=== PATIENT | male | born 1955 | race Caucasian/White ===

== ENCOUNTER 2016-09-07 10:42 | Outpatient (CLI) | payer MEDICAID | END 2016-09-07 10:43 | disposition home or self-care (01) | DX: E80.6 Other disorders of bilirubin metabolism (principal); E78.5 Hyperlipidemia, unspecified; R73.01 Impaired fasting glucose; I10 Essential (primary) hypertension; D64.9 Anemia, unspecified ==

== ENCOUNTER 2017-10-25 11:47 | Emergency (ER) | payer MEDICAID ==
[2017-10-25 12:20] LABS: BASOPHILS # (AUTO) 0.1 10^3/uL (0.0-0.1); BASOPHILS % (AUTO) 0.6 %; EOSINOPHILS # (AUTO) 0.1 10^3/uL (0.0-0.7); EOSINOPHILS % (AUTO) 0.9 %; HGB - HEMOGLOBIN 15.7 g/dL (14.0-18.0); LYMPHOCYTES # (AUTO) 0.6 10^3/uL (1.5-3.5); MEAN CORPUSCULAR HEMOGLOBIN 29.1 pg (27.0-31.0); MEAN CORPUSCULAR HGB CONC 35.6 g/dL (32.0-36.0); MEAN CORPUSCULAR VOLUME 81.9 fL (80.0-94.0); MEAN PLATELET VOLUME 7.6 fL (7.4-11.4); MONOCYTES # (AUTO) 0.8 10^3/uL (0.0-1.0); MONOCYTES % (AUTO) 6.4 %; NEUTROPHILS # (AUTO) 10.5 10^3/uL (1.5-6.6); NEUTROPHILS % (AUTO) 87.1 %; PLT - PLATELET COUNT 265 10^3/uL (130-450); RED BLOOD COUNT 5.41 10^6/uL (4.70-6.10)
[2017-10-25 12:41] LABS: ALBUMIN 4.4 g/dL (3.2-5.5); ALBUMIN/GLOBULIN RATIO 1.5 (1.0-2.2); BILIRUBIN,TOTAL 2.9 mg/dL (0.2-1.0); CALCIUM 9.3 mg/dL (8.5-10.3); CREATININE 1.2 mg/dL (0.6-1.2); TOTAL PROTEIN 7.4 g/dL (6.7-8.2)
[2017-10-25 13:10] LABS: BILIRUBIN,URINE NEGATIVE (NEGATIVE); GLUCOSE, URINE (UA) NEGATIVE (NEGATIVE); KETONES,URINE (UA) NEGATIVE (NEGATIVE); LEUKOCYTE ESTERASE, URINE NEGATIVE (NEGATIVE); NITRITE,URINE NEGATIVE (NEGATIVE); OCCULT BLOOD,URINE SMALL (NEGATIVE); PH,URINE 5.5 PH (5.0-7.5); PROTEIN,URINE TRACE mg/dL (NEGATIVE); UROBILINOGEN,URINE 0.2 (NORMAL) E.U./dL (NORMAL)
[2017-10-25 13:12] LABS: CLARITY,URINE CLEAR (CLEAR)
[2017-10-25 13:27] LABS: BACTERIA,URINE Rare /HPF (None Seen); RBC,URINE 0-5 /HPF (0-5); SQUAMOUS EPITHELIAL CELL,UR NONE SEEN (<= Few)
[2017-10-25 13:28] LABS: MUCUS,URINE Few Strands
--- NOTE | 2017-10-25 14:54 | ED Physician Documentation ---
PD HPI NVD - Stated complaint Stated Complaint: VOMITING - Chief complaint Chief Complaint: Abd Pain - History obtained from History obtained from: Patient - History of Present Illness Timing - onset: Yesterday Timing - duration: Days (1-2) Associated symptoms: Loss of appetite. No: Fever, Abdominal pain, Hematemesis, Melena, Dysuria (but says urine smells strongly) Contributing factors: No: Sick contact, Bad food, Travel, Recent antibiotics Similar symptoms before: Has not had sx before Recently seen: Not recently seen Review of Systems Constitutional: reports: Chills, Myalgias. denies: Fever Nose: denies: Rhinorrhea / runny nose, Congestion Throat: denies: Sore throat Cardiac: denies: Chest pain / pressure, Palpitations Respiratory: denies: Dyspnea, Cough GI: reports: Nausea, Vomiting, Diarrhea. denies: Abdominal Pain, Hematemesis, Bloody / black stool : denies: Dysuria, Frequency Skin: denies: Rash, Lesions Neurologic: reports: Generalized weakness, Near syncope. denies: Focal weakness , Numbness, Syncope, Altered mental status, Headache, LOC Endocrine: reports: Weight loss. denies: Polydypsia, Polyuria PD PAST MEDICAL HISTORY - Past Medical History Cardiovascular: Hypertension Respiratory: Sleep apnea GI: GERD, Hiatal hernia, Hemorrhoids Psych: Depression, Claustrophobia - Past Surgical History Past Surgical History: Yes General: Colonoscopy Ortho: Knee replacement - Present Medications Home Medications: Ambulatory Orders Medication Instructions Recorded Confirmed Cholecalciferol (Vitamin D3) 2,000 unit PO DAILY 07/14/13 10/27/17 [Vitamin D3] Magnesium Oxide/Mag Aa Chelate 300 mg PO DAILY 07/14/13 10/27/17 [Magnesium 300 mg Capsule] Tamsulosin [Flomax] 0.4 mg PO ONCE 07/14/13 10/27/17 Lansoprazole 15 mg PO DAILY 08/22/14 10/27/17 Chlorthalidone 1 tab PO DAILY 07/28/17 10/27/17 Lidocaine Viscous 2% [Xylocaine 5 ml PO Q4H PRN #1 bottle 10/25/17 10/27/17 Viscous 2%] Ondansetron Odt [Zofran] 4 mg TL Q6H PRN #15 tablet 10/25/17 10/27/17 Cyanocobalamin (Vitamin B-12) 1 tab PO DAILY 10/27/17 10/27/17 [Vitamin B-12 (1000 mcg sublingual)] - Allergies Allergies/Adverse Reactions: Allergies Allergy/AdvReac Type Severity Reaction Status Date / Time No Known Drug Allergies Allergy Verified 10/25/17 11:59 - Social History Does the pt smoke?: No Smoking Status: Never smoker Does the pt drink ETOH?: No Does the pt have substance abuse?: No PD ED PE NORMAL - Vitals Vital signs reviewed: Yes - General General: Alert and oriented X 3, Well developed/nourished - HEENT HEENT: Ears normal, Pharynx benign. No: Moist mucous membranes - Neck Neck: Supple, no meningeal sign, No adenopathy - Cardiac Cardiac: RRR, No murmur - Respiratory Respiratory: Clear bilaterally - Abdomen Abdomen: Soft, Non tender, Non distended, No organomegaly. No: Normal bowel sounds (diminished) - Male Male : Deferred - Rectal Rectal: Deferred - Back Back: No CVA TTP - Derm Derm: Normal color, Warm and dry - Extremities Extremities: No deformity, No edema, No calf tenderness / cord - Neuro Neuro: Alert and oriented X 3, No motor deficit, Normal speech Results - Vitals Vitals: Oxygen O2 Source Room air - Labs Labs: Laboratory Tests 10/25/17 10/25/17 10/25/17 12:14 12:14 Unknown WBC 12.0 H RBC 5.41 Hgb 15.7 Hct 44.3 MCV 81.9 MCH 29.1 MCHC 35.6 RDW 14.0 Plt Count 265 MPV 7.6 Neut # 10.5 H Lymph # 0.6 L Pike # 0.8 Eos # 0.1 Baso # 0.1 Absolute Nucleated RBC 0.02 Nucleated RBC % 0.2 Sodium 138 Potassium 3.1 L Chloride 98 L Carbon Dioxide 27 Anion Gap 13.0 BUN 25 H Creatinine 1.2 Estimated GFR (MDRD) 61 L Glucose 118 H Calcium 9.3 Total Bilirubin 2.9 H AST 21 ALT 15 Alkaline Phosphatase 63 Total Protein 7.4 Albumin 4.4 Globulin 3.0 Albumin/Globulin Ratio 1.5 Lipase 78 H Urine Color DARK YELLOW Urine Clarity CLEAR Urine pH 5.5 Ur Specific [place] 1.025 Urine Protein TRACE Urine Glucose (UA) NEGATIVE Urine Ketones NEGATIVE Urine Occult Blood SMALL H Urine Nitrite NEGATIVE Urine Bilirubin NEGATIVE Urine Urobilinogen 0.2 (NORMAL) Ur Leukocyte Esterase NEGATIVE Urine RBC 0-5 Urine WBC 0-3 Ur Squamous Epith Cells NONE SEEN Urine Bacteria Rare Urine Mucus Few Strands Ur Microscopic Review INDICATED Urine Culture Comments NOT INDICATED PD MEDICAL DECISION MAKING - ED course Complexity details: re-evaluated patient (feeling much improved with IV fluids and meds. ), considered differential (sounds like viral GE. ), d/w patient Departure - Departure Disposition: 01 Home, Self Care Clinical Impression: Nausea vomiting and diarrhea, Viral gastroenteritis Condition: Stable Record reviewed to determine appropriate education?: Yes Instructions: ED Diet Vomiting Diarrhea Follow-Up: Oly Salazar DO [Primary Care Provider] - Prescriptions: Lidocaine Viscous 2% [Xylocaine Viscous 2%] 5 ml PO Q4H PRN #1 bottle PRN Reason: Pain Ondansetron Odt [Zofran] 4 mg TL Q6H PRN #15 tablet PRN Reason: Nausea / Vomiting Comments: Small frequent fluids. Ondansetron if needed for nausea. If you do have upset stomach or heartburn/gastritis symptoms he can use antacid in even lidocaine 5- 10 mils mixed with it just for the discomfort. Vomiting like this can cause some irritation of the stomach. It presumably is a viral illness that will have a 1 or 2 day duration and then started feeling a bit yucky for a couple more days. Rest and activity as able. Use Imodium at home if needed for diarrhea. Recheck if not improved over the next couple of days. Discharge Date/Time: 10/25/17 17:22
[2017-10-25] MEDS ORDERED: ONDANSETRON 4 MG/2 ML VIAL IVP STA (15:13)
[2017-10-25] MEDS ORDERED: SODIUM CHLORIDE 0.9% 1,000 ML IV ONE ×2 (15:13)
[2017-10-25] MEDS ORDERED: FAMOTIDINE 20 MG/50 ML 50 ML IV ONE (15:14)
[2017-10-25] MEDS ORDERED: POTASSIUM BICARB 25 MEQ TABLET PO STA (16:28)
[2017-10-25 17:21] VITALS: BP 142/59
== END 2017-10-25 17:22 | disposition home or self-care (01) ==
LOC: ED 11:47
DX: A08.4 Viral intestinal infection, unspecified (principal); I10 Essential (primary) hypertension; Z96.659 Presence of unspecified artificial knee joint
CPT/HCPCS: 36415; 80053; 81001; 83690; 85025; 96365; 96375; 99283; 99284; A9270; 81003; 87086

== ENCOUNTER 2018-06-21 10:07 | Outpatient (CLI) | payer MEDICAID | END 2018-06-21 23:59 | LOC: LAB.WCP 10:07 | PROVIDERS: ATTEND Family Medicine | DX: R51 Headache (principal) | CPT/HCPCS: 36415; 85651; 86140 ==

== ENCOUNTER 2018-08-29 12:53 | Outpatient (CLI) | payer MEDICAID | END 2018-08-29 12:54 | disposition home or self-care (01) | LOC: SC 12:53 | PROVIDERS: ATTEND Internal Medicine Pulmonary Disease | DX: G47.33 Obstructive sleep apnea (adult) (pediatric) (principal); G47.00 Insomnia, unspecified | CPT/HCPCS: 99203; 99212 ==

== ENCOUNTER 2018-09-06 07:06 | Day surgery (SDC) | payer MEDICAID ==
[2018-09-06] MEDS ORDERED: ceFAZolin 2 GM/50 ML 2 GM/50 ML BAG IV ONE (07:09)
[2018-09-06] MEDS ORDERED: LACTATED RINGERS 1,000 ML IV ONE ×2 (07:40→10:25)
--- NOTE | 2018-09-06 08:02 | ANESTHESIA ---
Pre-Anesthesia VS, & Labs - Diagnosis R recurrent inguinal hernia - Procedure R inguinal hernia repair Vital Signs: Temp Pulse Resp BP Pulse Ox 36.9 C 57 L 16 142/50 H 98 09/06/18 07:19 09/06/18 07:19 09/06/18 07:19 09/06/18 07:19 09/06/18 07:19 Height 5 ft 6 in Weight (kg) 75.1 kg Body Mass Index 25.8 - NPO >8 hours Home Medications and Allergies Home Medications: Ambulatory Orders Cyanocobalamin (Vitamin B-12) [B-12] 1,500 mcg SL DAILY 09/01/18 Cholecalciferol (Vitamin D3) [Vitamin D3] 2,000 unit PO DAILY 07/14/13 Magnesium Oxide/Mag Aa Chelate [Magnesium 300 mg Capsule] 300 mg PO DAILY 07/14/13 Tamsulosin [Flomax] 0.4 mg PO ONCE 07/14/13 Lansoprazole 15 mg PO DAILY 08/22/14 Chlorthalidone 1 tab PO DAILY 07/28/17 Cyanocobalamin (Vitamin B-12) [B-12] 1,500 mcg SL DAILY 09/01/18 Allergies/Adverse Reactions: Allergies Allergy/AdvReac Type Severity Reaction Status Date / Time No Known Drug Allergies Allergy Verified 10/25/17 11:59 Anes History & Medical History - Anesthetic History Anesthesia Complications: reports: No previous complications Family history of Anesthesia Complications: Denies - Medical History Cardiovascular: reports: Hypertension, Murmur (per pt.) Pulmonary: reports: Sleep apnea Gastrointestinal: reports: GERD, Hiatal hernia, Hemorrhoids Urinary: reports: Retention, Frequency Musculoskeletal: reports: Chronic back pain Endocrine/Autoimmune: reports: None Skin: reports: Other Smoking Status: Never smoker - Surgical History General: Colonoscopy Eyes Ears Nose Throat (EENT): Other Orthopedic: Knee replacement Exam General: Alert, Oriented x3, Cooperative Dental: WNL Mouth Openin Fingerbreadth Mallampati classification: II Thyromental Distance: 4-6 cm Respiratory: Lungs clear, Normal breath sounds Cardiovascular: Regular rate Neurological: Normal speech Mental/Cognitive Status: Alert/Oriented X3 Cognitive Status: Within normal limits Plan Anesthesia Type: General Consent for Procedure(s) Verified and Reviewed: Yes Code Status: Attempt Resuscitation ASA classification: 2-Mild systemic disease Is this case an emergency?: No
[2018-09-06] MEDS ORDERED: BUPIVACAINE 0.5% PF 30 ML VIAL ONE (08:40)
[2018-09-06] MEDS ORDERED: BUPIVACAINE 0.5% PF 30 ML VIAL INFIL ONE ×2 (09:39→10:03)
[2018-09-06] MEDS ORDERED: ONDANSETRON 4 MG/2 ML VIAL IVP PRN (10:26)
[2018-09-06] MEDS ORDERED: HYDROmorphone 0.5 MG/0.5 ML SYRINGE IVP PRN (10:26)
[2018-09-06] MEDS ORDERED: HYDROcod/ACETAM 5/325 MG TABLET PO PRN (10:26)
--- NOTE | 2018-09-06 10:33 | OPERATIVE REPORT ---
Operative Report - General Procedure Date: 09/06/18 Planned Procedure: Recurrent right inguinal herniorrhaphy Pre-Op Diagnosis: Recurrent right inguinal hernia Procedure Performed: Recurrent right direct inguinal herniorrhaphy with mesh Post Op Diagnosis: Recurrent right direct inguinal hernia - Procedure Note Primary Surgeon: Kemar Samuels MD Anesthesia Provider: John Cameron CRNA Anesthesia Technique: General ET tube, Local (30 mL of half percent Marcaine) IV Fluids (mL): 700 Estimated Blood Loss (mL): 5 Drain/Tube Type: Other (None.) Complications: None. - Other Other Information/Narrative: OPERATIVE DESCRIPTION/REPORT: After verbal and written informed consent was obtained detailing the risks of infection, bleeding requiring transfusion with its risks, nerve injury, and d eath, and after I met with the patient confirming the surgery and the site of the surgery and after initialing the site of the surgery with a surgical marker, the patient was brought to the operative suite and placed supine on the operating table. Great care was taken to avoid pressure points to prevent pressure necrosis or nerve injury. Monitoring devices were applied along with TEDs and pneumatic compressive stockings (to prevent DVT). The patient received preoperative antibiotics for surgical prophylaxis. John Cameron CRNA sedated and anesthetized the patient for the entire procedure. The patient was prepped and draped in the usual sterile manner. With the patient draped my initials were clearly visible. A "time in" then confirmed that the patient was identified with 3 identifiers (name, date and medical record number), the history and physical was in the chart, the signed consent confirming the procedure was in the chart, the patient was in the correct position, the aforementioned prophylactic measures were in place or given, we had the correct personnel and equipment to complete the procedure and that anesthesia, surgery and nursing were given an opportunity to express any concerns. With the agreement of everyone in the room, we proceeded with the operation. A standard inguinal incision was made tracing the medial third of the previous incision (the bulge was palpated just lateral to the pubic tubercle) and dissection was carried down to the external oblique aponeurosis using a combination of Metzenbaum scissors and Bovie electrocautery. The external oblique aponeurosis was cleared of overlying adherent tissue, and the external ring was delineated. The external oblique was the incised with a scalpel and this incision was carried out to the external ring using Metzenbaum scissors. Old Ethibond sutures were seen. Having exposed the inguinal canal, the cord structures were from the canal using blunt dissection, and a Herculaneum drain was placed around the cord structures at the level of the pubic tubercle. This Sharif drain was then used to retract the cord structures as needed. Adherent cremasteric muscle was dissected free from the cord using Bovie electrocautery. The cord was then explored using a combination of sharp and blunt dissection, and no sac was found. The hernia was found coming from the floor of the inguinal canal medial to the inferior epigastric vessels. This was dissected back to the hernia opening. The hernia was inverted back into the abdominal cavity and a large Bard Perfix plug (Ref# [id number], Lot# [id number], use by 2023-03-12) inserted into the hernia defect. The plug was secured to the edge of the hernia defect using interrupted 2-0 PDS sutures. This permitted the floor of the inguinal canal to be repaired without the hernia in my way. The Perfix enlay patch was then placed on the floor of the inguinal canal and secured superiorly to the conjoined tendon and inferiorly to the shelving edge of Pouparts ligament using interrupted 2-0 PDS sutures. At the pubic tubercle a 2-0 PDS stitch was used to secure the mesh. The mesh was secured around the cord structures with a 2-0 PDS loosely thus creating a new internal ring. The Herculaneum drain was removed. The wound was then irrigated using sterile saline, and hemostasis was obtained using Bovie electrocautery. The incision in the external oblique was approximated using a 2-0 Vicryl in a running fashion, thus reforming the external ring. The skin incision was approximated with 4-0 Monocryl in a subcuticular fashion. The incision was then further buttressed with Dermabond. At this point a time out was performed that confirmed that all the counts were correct, the procedure that was performed, the blood loss, the IV fluids administered, and the patients condition. A dressing was then applied. Gentle downward traction ensured that the testes were well seated in the scrotum. Having tolerated the procedure well, the patient was taken to recovery room in good and stable condition. [employer] disclaimer: This document was created in part using voice recognition technology. Because of the inherent limitations of the system ([employer]'s Dragon Dictate user manual states that the licensee understands that speech recognition is a statistical process and that recognition errors are inherent in the process), occasional same sounding word substitutions and grammatical errors do occur and persist despite proofreading. Please read this document for context.
[2018-09-06 11:56] VITALS: BP 152/52
== END 2018-09-06 07:07 | disposition home or self-care (01) ==
LOC: SDS 07:06
PROVIDERS: ATTEND Surgery
PROC: 0YU50JZ Supplement Right Inguinal Region with Synthetic Substitute, Open Approach (ICD-10-PCS; principal; 2018-09-06 08:30)
DX: K40.91 Unilateral inguinal hernia, without obstruction or gangrene, recurrent (principal); I10 Essential (primary) hypertension; E78.00 Pure hypercholesterolemia, unspecified; G47.30 Sleep apnea, unspecified; K21.9 Gastro-esophageal reflux disease without esophagitis; K44.9 Diaphragmatic hernia without obstruction or gangrene; R33.9 Retention of urine, unspecified; R35.0 Frequency of micturition; Z87.11 Personal history of peptic ulcer disease
CPT/HCPCS: 49520; C1781; J0690; J7120

== ENCOUNTER 2018-09-11 19:30 | Outpatient (CLI) | payer MEDICAID | END 2018-09-11 23:59 | disposition home or self-care (01) | LOC: SC 19:30 | PROVIDERS: ATTEND Internal Medicine Pulmonary Disease | DX: G47.33 Obstructive sleep apnea (adult) (pediatric) (principal) | CPT/HCPCS: 95806 ==

== ENCOUNTER 2018-09-19 08:46 | Day surgery (SDC) | payer MEDICAID ==
[2018-09-19] MEDS ORDERED: LACTATED RINGERS 1,000 ML IV ONE (09:12)
[2018-09-19] MEDS ORDERED: LIDO GARGLE 30 ML BOTTLE ONE (10:00)
[2018-09-19] MEDS ORDERED: fentaNYL 100 MCG/2 ML VIAL IVP ONE (10:17)
[2018-09-19] MEDS ORDERED: MIDAZOLAM 2 MG/2 ML VIAL IVP ONE (10:17)
[2018-09-19] MEDS ORDERED: LIDO GARGLE 30 ML BOTTLE PO ONE (10:35)
[2018-09-19 11:44] VITALS: BP 123/62
== END 2018-09-19 08:47 | disposition home or self-care (01) ==
LOC: SDS 08:46
PROVIDERS: ATTEND Surgery
PROC: 0DB48ZX Excision of Esophagogastric Junction, Via Natural or Artificial Opening Endoscopic, Diagnostic (ICD-10-PCS; principal; 2018-09-19 10:15)
DX: K21.0 Gastro-esophageal reflux disease with esophagitis (principal); R13.10 Dysphagia, unspecified; K59.00 Constipation, unspecified; K40.91 Unilateral inguinal hernia, without obstruction or gangrene, recurrent; I10 Essential (primary) hypertension; G47.30 Sleep apnea, unspecified; Z80.0 Family history of malignant neoplasm of digestive organs; Z87.11 Personal history of peptic ulcer disease
CPT/HCPCS: 43239; A9270; J7120

== ENCOUNTER 2018-10-06 08:32 | Outpatient (CLI) | payer MEDICAID | END 2018-10-06 08:33 | disposition home or self-care (01) | LOC: SC 08:32 | PROVIDERS: ATTEND Nurse Practitioner Family | DX: G47.33 Obstructive sleep apnea (adult) (pediatric) (principal) | CPT/HCPCS: 99212; 99214 ==

== ENCOUNTER 2019-02-13 12:47 | Outpatient (CLI) | payer MEDICAID | END 2019-02-13 12:48 | disposition home or self-care (01) | LOC: SC 12:47 | PROVIDERS: ATTEND Internal Medicine Pulmonary Disease | DX: G47.33 Obstructive sleep apnea (adult) (pediatric) (principal) | CPT/HCPCS: 99212; 99213 ==

== ENCOUNTER 2020-04-09 09:12 | Outpatient (CLI) | payer MEDICARE, OTHER ==
--- NOTE | 2020-04-09 09:49 | SLEEP CARE CONSULTATION ---
Information from patient questionnaire entered by Morena De La Paz. I have reviewed and concur with the information entered by Morena De La Paz. This document represents the service I personally performed and the decisions made by me, Pallavi Kee MD, [facility]. History of Present Illness Service Date and Time: 04/09/2020911 Previous diagnosis: Mild, Obstructive Sleep Apnea-Hypopnea Syndrome AHI: 6.2 (in 2019) Reason for follow up: annual (last seen 2019) Equipment type: CPAP Equipment obtained from: [facility] Mask style: Nasal Prior sleep studies: Yes Year and Where: 2019 - [facility] Type of Sleep Study: Home sleep study HPI additional information: HPI: Mr. Cotto returned today for follow up of nasal CPAP therapy. He was diagnosed to have mild obstructive sleep apnea-hypopnea syndrome. The patient went to [facility] for the equipment and was fitted with a ResMed AirTouch F-20 full face mask. He reports using the device nightly and all through the night. The compliance report shows usage in 180 nights out of the past 180 nights, av eraging 6.3 (was 5.7) hours a night. The > 4 hour compliance rate for the past 30 days is 98%. He complained of fatigue but no particular problem with the device such as soreness on the face, dry nose, epistaxis, nasal congestion or headache. He thinks that the pressure of 11.4 - 16 cmH2O is comfortable (it was ordered 12 16 cmH2O last year). On the CPAP therapy he notices improvement in his sleep quality. The [place] Sleepiness Scale score 12. His notices no snore at all. The average residual AHI is 0.9 (was 5); and air leak, 0 L/min. The 90th percentile pressure is 12.4 cmH2O. CPAP Compliance Data - Data Reviewed with Patient Average duration of nightly device use: 6.3 Compliance rate %: 98 (180 days) Current pressure setting (cmH2O): 11.4-16 Average residual AHI: 0.9 Subjective Initial [place] Sleepiness Scale score: 12 (in 2019) Allergies and Home Medications Drug allergies reviewed: Yes Home medication list reviewed: Yes Review of Systems Review of systems same as previous: Yes Physical Exam Vital signs obtained and entered by: To minimize the risk of COVID-19 exposure, detailed exam was not performed. Height: 5 ft 6 in Weight: 170 lb Body Mass Index: 27.4 BMI Classification: Overweight Impression and Plan IMPRESSION: 1. Obstructive Sleep Apnea-Hypopnea Syndrome, mild, with the patient doing well on nasal CPAP therapy. He has excellent compliance and significant clinical improvement. The current pressure appears comfortable but slightly ineffective. Overall, he is very satisfied with treatment and plans to continue with it long-term. PLAN: 1. Leave autoCPAP at 11.4 - 16 cmH2O. 2. Return in one year for follow up or earlier if there is any problem with the treatment. Visit Type: In Office Time Spent with Patient (minutes): 15 Provider Statement: I spent 100% of the Face to Face Visit with the patient with greater than 50% spent counseling the patient and coordination of care.
== END 2020-04-09 09:13 | disposition home or self-care (01) ==
LOC: SC 09:12
PROVIDERS: ATTEND Internal Medicine Pulmonary Disease
DX: G47.33 Obstructive sleep apnea (adult) (pediatric) (principal); E66.3 Overweight; Z68.27 Body mass index [BMI] 27.0-27.9, adult
CPT/HCPCS: 99213; G0463; 99212

== ENCOUNTER 2020-10-15 17:10 | Outpatient (CLI) | payer MEDICARE, OTHER | END 2020-10-15 17:11 | disposition home or self-care (01) | LOC: COV 17:10 | PROVIDERS: ATTEND Internal Medicine Cardiovascular Disease | DX: Z01.812 Encounter for preprocedural laboratory examination (principal); I35.1 Nonrheumatic aortic (valve) insufficiency; Z20.822 Contact with and (suspected) exposure to COVID-19 ==

== ENCOUNTER 2020-12-27 15:39 | Outpatient (CLI) | payer MEDICARE, OTHER | END 2020-12-27 15:40 | disposition home or self-care (01) | LOC: COV 15:39 | PROVIDERS: ATTEND Surgery | DX: Z01.812 Encounter for preprocedural laboratory examination (principal); R19.4 Change in bowel habit; G47.33 Obstructive sleep apnea (adult) (pediatric); K21.9 Gastro-esophageal reflux disease without esophagitis; Z20.822 Contact with and (suspected) exposure to COVID-19 ==

== ENCOUNTER 2020-12-31 06:22 | Day surgery (SDC) | payer MEDICARE, OTHER ==
[2020-12-31] MEDS ORDERED: LACTATED RINGERS 1,000 ML IV ONE ×2 (06:25→08:58)
[2020-12-31] MEDS ORDERED: PROPOFOL 1000 MG/100 ML 1,000 MG/100 ML BOTTLE IV ONE (06:51)
--- NOTE | 2020-12-31 07:23 | ANESTHESIA ---
Pre-Anesthesia VS, & Labs - Diagnosis gerd, change in bowel habits - Procedure colonoscopy, EGD Vital Signs: Temp Pulse Resp BP Pulse Ox 36.2 C L 61 14 130/54 L 97 12/31/20 06:26 12/31/20 06:26 12/31/20 06:26 12/31/20 06:26 12/31/20 06:26 Height: 5 ft 6 in Weight (kg): 73 kg Body Mass Index: 25.9 BMI Classification: Overweight - NPO >8 hours - Lab Results Lab results reviewed: Yes Home Medications and Allergies Cholecalciferol (Vitamin D3) [Vitamin D3] 2,000 unit PO DAILY 07/14/13 Tamsulosin [Flomax] 0.4 mg PO DAILY 07/14/13 Atorvastatin Calcium 20 mg PO QPM 05/14/20 Chlorthalidone 12.5 mg PO DAILY 07/10/20 Lisinopril [Zestril] 10 mg PO DAILY 07/10/20 Potassium Chloride [Klor-Con 8] 8 meq PO DAILY 07/10/20 Allergies/Adverse Reactions: Allergies Allergy/AdvReac Type Severity Reaction Status Date / Time No Known Drug Allergies Allergy Verified 10/25/17 11:59 Anes History & Medical History - Anesthetic History Anesthesia Complications: reports: No previous complications Family history of Anesthesia Complications: Denies Family history of Malignant Hyperthermia: Denies - Medical History Cardiovascular: reports: Hypertension, Murmur Pulmonary: reports: Sleep apnea Gastrointestinal: reports: GERD, Hiatal hernia, Hemorrhoids Smoking Status: Never smoker - Surgical History General: reports: Colonoscopy Orthopedic: reports: Knee replacement Exam General: Alert, Oriented x3, Cooperative Dental: WNL Mouth Openin Fingerbreadth Neck Mobility: Normal Mallampati classification: II Thyromental Distance: 4-6 cm Respiratory: Lungs clear, Normal breath sounds, No respiratory distress Cardiovascular: Regular rate, Other (systolic murmur) Neurological: Normal speech Mental/Cognitive Status: Alert/Oriented X3, Normal for patient Cognitive Status: Within normal limits Plan Anesthesia Type: Total IV Consent for Procedure(s) Verified and Reviewed: Yes Code Status: Attempt Resuscitation ASA classification: 3-Severe systemic disease Is this case an emergency?: No
[2020-12-31 09:24] VITALS: BP 119/49
--- NOTE | 2020-12-31 10:23 | ANESTHESIA POST OP EVALUATION ---
Anesthesia Post Eval - Post Anesthesia Eval Vitals: Last Vital Signs Temp 36.2 C L 12/31/20 09:23 Pulse 55 L 12/31/20 09:23 Resp 11 L 12/31/20 09:23 BP 119/49 L 12/31/20 09:23 Pulse Ox 99 12/31/20 09:23 CV Function Including HR & BP: Stable Pain Control: Satisfactory Nausea & Vomiting: Negative Mental Status: Baseline Respiratory Status: Airway Patent Hydration Status: Satisfactory Anesthesia Complications: None
== END 2020-12-31 06:23 | disposition home or self-care (01) ==
LOC: SDS 06:22
PROVIDERS: ATTEND Surgery
PROC: 0DB78ZX Excision of Stomach, Pylorus, Via Natural or Artificial Opening Endoscopic, Diagnostic (ICD-10-PCS; 2020-12-31)
PROC: 0DB38ZX Excision of Lower Esophagus, Via Natural or Artificial Opening Endoscopic, Diagnostic (ICD-10-PCS; 2020-12-31)
PROC: 0DB48ZX Excision of Esophagogastric Junction, Via Natural or Artificial Opening Endoscopic, Diagnostic (ICD-10-PCS; 2020-12-31)
PROC: 0DJD8ZZ Inspection of Lower Intestinal Tract, Via Natural or Artificial Opening Endoscopic (ICD-10-PCS; principal; 2020-12-31 07:30)
PROC: 0DB98ZX Excision of Duodenum, Via Natural or Artificial Opening Endoscopic, Diagnostic (ICD-10-PCS; 2020-12-31 07:30)
DX: K21.9 Gastro-esophageal reflux disease without esophagitis (principal); R19.4 Change in bowel habit; K62.5 Hemorrhage of anus and rectum; K20.90 Esophagitis, unspecified without bleeding; K64.8 Other hemorrhoids; K57.30 Diverticulosis of large intestine without perforation or abscess without bleeding; G47.33 Obstructive sleep apnea (adult) (pediatric); E66.3 Overweight; Z68.25 Body mass index [BMI] 25.0-25.9, adult; R01.1 Cardiac murmur, unspecified
CPT/HCPCS: 43239; 45378; J7120

== ENCOUNTER 2021-01-20 16:41 | Outpatient (CLI) | payer MEDICARE, OTHER | END 2021-01-20 16:42 | disposition home or self-care (01) | LOC: COV 16:41 | PROVIDERS: ATTEND Nurse Practitioner | DX: Z01.812 Encounter for preprocedural laboratory examination (principal); Z20.822 Contact with and (suspected) exposure to COVID-19 ==

== ENCOUNTER 2021-03-21 08:00 | Outpatient (CLI) | payer MEDICARE, OTHER | END 2021-03-21 23:59 | disposition home or self-care (01) | LOC: LAB.WCP 08:00 | PROVIDERS: ATTEND Family Medicine | DX: Z79.01 Long term (current) use of anticoagulants (principal); Z95.2 Presence of prosthetic heart valve ==

== ENCOUNTER 2021-04-02 08:00 | Outpatient (CLI) | payer MEDICARE, OTHER | END 2021-04-02 23:59 | disposition home or self-care (01) | LOC: LAB.WCP 08:00 | PROVIDERS: ATTEND Family Medicine | DX: Z79.01 Long term (current) use of anticoagulants (principal); Z95.2 Presence of prosthetic heart valve ==

== ENCOUNTER 2021-04-09 08:00 | Outpatient (CLI) | payer MEDICARE, OTHER | END 2021-04-09 23:59 | disposition home or self-care (01) | LOC: LAB.N 08:00 | PROVIDERS: ATTEND Family Medicine | DX: Z79.01 Long term (current) use of anticoagulants (principal); Z95.2 Presence of prosthetic heart valve ==

== ENCOUNTER 2021-04-18 08:00 | Outpatient (CLI) | payer MEDICARE, OTHER | END 2021-04-18 23:59 | disposition home or self-care (01) | LOC: LAB.WCP 08:00 | PROVIDERS: ATTEND Family Medicine | DX: Z79.01 Long term (current) use of anticoagulants (principal); Z95.2 Presence of prosthetic heart valve ==

== ENCOUNTER 2021-04-25 08:00 | Outpatient (CLI) | payer MEDICARE, OTHER | END 2021-04-25 23:59 | disposition home or self-care (01) | LOC: LAB.WCP 08:00 | PROVIDERS: ATTEND Family Medicine | DX: Z79.01 Long term (current) use of anticoagulants (principal); Z95.2 Presence of prosthetic heart valve ==

== ENCOUNTER 2021-04-28 09:37 | Outpatient (CLI) | payer MEDICARE, OTHER ==
--- NOTE | 2021-04-28 09:52 | SLEEP CARE CONSULTATION ---
Information from patient questionnaire entered by Morena De La Paz. I have reviewed and concur with the information entered by Morena De La Paz. This document represents the service I personally performed and the decisions made by me, Pallavi Kee MD, [facility]. History of Present Illness Service Date and Time: 04/28/2021 0940 Previous diagnosis: Mild, Obstructive Sleep Apnea-Hypopnea Syndrome AHI: 6.2 (in 2019) Reason for follow up: annual (last seen 03/2020) Equipment type: CPAP Equipment obtained from: [facility] Mask style: Nasal Prior sleep studies: Yes Year and Where: 2019 - [facility] HPI additional information: Mr. Cotto was seen via telemedicine today for annual follow up of nasal CPAP therapy. He was diagnosed to have mild obstructive sleep apnea-hypopnea syndrome. The patient went to [facility] for the equipment and was fitted with a ResMed F30 full face mask. He reports using the device nightly and all through the night. The compliance report shows usage in 178 nights out of the past 180 nights, averaging 5.9 (was 6.3) hours a night. The > 4 hour compliance rate for the past 180 days is 96%. He complained of insomnia but no particular problem with the device such as soreness on the face, dry nose, epistaxis, nasal congestion or headache. He thinks that the pressure of 11.4 - 16 cmH2O is comfortable (it was ordered 12 16 cmH2O). On the CPAP therapy he notices improvement in his sleep quality. The [place] Sleepiness Scale score not available. The average residual AHI is 0.8 (was 0.9); and air leak, 0.1 L/min. The 90th percentile pressure is 12.2 cmH2O. CPAP Compliance Data - Data Reviewed with Patient Average duration of nightly device use: 5 hr 54 min Compliance rate %: 96 (180 days) Current pressure setting (cmH2O): 11.4-16 Humidity settin Average residual AHI: 0.8 Subjective Initial [place] Sleepiness Scale score: 12 (in 2019) Allergies and Home Medications Drug allergies reviewed: Yes Home medication list reviewed: Yes Review of Systems Review of systems same as previous: Yes Physical Exam Height: 5 ft 6 in Weight: 170 lb Body Mass Index: 27.4 BMI Classification: Overweight Impression and Plan IMPRESSION: 1. Obstructive Sleep Apnea-Hypopnea Syndrome, mild, with the patient doing well on nasal CPAP therapy. He has excellent compliance and significant clinical improvement. The current pressure appears comfortable but slightly ineffective. Overall, he is very satisfied with treatment and plans to continue with it long-term. 2. Insomnia, due to excessive time spent in bed of about 12 hours a night plus he naps during the day. PLAN: 1. Leave autoCPAP at 11.4 - 16 cmH2O. 2. Maintain a regular wake up time and spend no more than 8 hours in bed at night. Avoid naps. 3. Return for follow up in a year or earlier if there is any problem. Follow up with Sleep Care in: 1 year Visit Type: Telehealth Video Video Type: VSee Patient Location: Home Location of Provider: Office Patient agrees and consents to this telehealth visit type: Yes Patient agrees to have their insurance billed: Yes Time Spent with Patient (minutes): 15 Provider Statement: I spent 100% of the Telehealth Video Call with the patient with greater than 50% spent counseling the patient and coordination of care.
== END 2021-04-28 09:38 | disposition home or self-care (01) ==
LOC: SC 09:37
PROVIDERS: ATTEND Internal Medicine Pulmonary Disease
DX: G47.33 Obstructive sleep apnea (adult) (pediatric) (principal); G47.00 Insomnia, unspecified
CPT/HCPCS: 99212

== ENCOUNTER 2021-05-09 08:00 | Outpatient (CLI) | payer MEDICARE, OTHER | END 2021-05-09 23:59 | disposition home or self-care (01) | LOC: LAB.WCP 08:00 | PROVIDERS: ATTEND Family Medicine | DX: Z79.01 Long term (current) use of anticoagulants (principal); Z95.2 Presence of prosthetic heart valve ==

== ENCOUNTER 2021-05-23 08:00 | Outpatient (CLI) | payer MEDICARE, OTHER | END 2021-05-23 23:59 | disposition home or self-care (01) | LOC: LAB.N 08:00 | PROVIDERS: ATTEND Family Medicine | DX: Z79.01 Long term (current) use of anticoagulants (principal); Z95.2 Presence of prosthetic heart valve ==

== ENCOUNTER 2021-06-13 08:00 | Outpatient (CLI) | payer MEDICARE, OTHER | END 2021-06-13 23:59 | disposition home or self-care (01) | LOC: LAB.N 08:00 | PROVIDERS: ATTEND Family Medicine | DX: Z79.01 Long term (current) use of anticoagulants (principal); Z95.2 Presence of prosthetic heart valve ==

== ENCOUNTER 2021-07-02 08:00 | Outpatient (CLI) | payer MEDICARE, OTHER | END 2021-07-02 23:59 | disposition home or self-care (01) | LOC: LAB.N 08:00 | PROVIDERS: ATTEND Family Medicine | DX: Z79.01 Long term (current) use of anticoagulants (principal); Z95.2 Presence of prosthetic heart valve ==

== ENCOUNTER 2022-06-03 08:35 | Outpatient (CLI) | payer MEDICARE, OTHER ==
[2022-06-03 09:03] VITALS: BP 126/78
--- NOTE | 2022-06-03 09:03 | SLEEP CARE CONSULTATION ---
Information from patient questionnaire entered by Alexander March. I have reviewed and concur with the information entered by Alexander March. This document represents the service I personally performed and the decisions made by me, Ila Schneider ARNP. History of Present Illness Service Date and Time: 06/03/2022 0835 Previous diagnosis: Mild, Obstructive Sleep Apnea-Hypopnea Syndrome AHI: 6.2 (in 2018) Reason for follow up: annual (LAST SEEN 04/2021 RESMED) Equipment type: CPAP (RESMED) Equipment obtained from: [email or web address] (getting supplies as needed) Mask style: Full face Mask brand: Resmed ([id number]) Backup mask available: Yes (other mask) Last cushion change: 2 months ago Prior sleep studies: Yes Year and Where: 2018 - [facility] HPI additional information: MARCY VELAZCO was diagnosed to have mild, AHI 6.2, obstructive sleep apnea- hypopnea syndrome and returned today for CPAP therapy annual follow-up. Sleep Study - Results Prior sleep studies: Yes Year and Where: 2019 - [facility] CP[facility] Compliance Data - Data Reviewed with Patient Average duration of nightly device use: 6 hrs 32 min Compliance rate %: 98 (12/03/2021-05/31/2022; 178/180 days used) Current pressure setting (cmH2O): 11.4-16 Average residual AHI: 1.0 Central apnea: 0.2 Obstructive apnea: 0.5 Average large leak: 0.1 L/min Subjective Patient concerns: reports: dry mouth, nose, throat (dry mouth in last couple months). denies: aerophagia, mask discomfort, air blowing in eyes, mask leak noise, condensation in mask/hose, nasal congestion, epistaxis Observed to snore while using device: No Current pressure setting perceived as: comfortable On therapy, patient: reports: sleeping better, awakening more refreshed, being more awake and alert during the day, more rested overall. denies: drowsiness while driving Initial [place] Sleepiness Scale score: 12 (in 2018) Current [place] Sleepiness Scale score: 11 (06/03/2022) Allergies and Home Medications Drug allergies reviewed: Yes (NKDA) Home medication list reviewed: Yes (Dicyclomine Hydrochloride 3 times a day as needed) Review of Systems Review of systems same as previous: No (aortic valve (bovine) replacement) Physical Exam Vital signs obtained and entered by: ALEXANDER Moscoso MA Blood Pressure: 126/78 (LEFT ARM) Cuff size: regular Heart Rate: 88 O2 Saturation: 99 Height: 5 ft 6 in Weight: 172 lb 6.4 oz Body Mass Index: 27.8 BMI Classification: Overweight Impression and Plan 1. Obstructive Sleep Apnea-Hypopnea Syndrome, mild, with good treatment compliance and good apnea control. On CPAP therapy, the patient has better sleep quality and is more rested overall. Patient has significant improvement of their sleep apnea and are satisfied with current CPAP therapy. Patient having increased dry mouth in the morning. He states he has his humidity where he likes it. He knows how to adjust it if he needs to. I cautioned him about having a chronic dry mouth affecting his dentition. He voiced understanding and feels it will get better. Patient's apnea severity and rationale for treatment to reduce apnea, improve sleep quality and reduce cardiovascular and cerebrovascular events was reviewed. I also reviewed the benefit of consistent device use of CPAP for hypertension and gastric reflux. 2. Overweight, unspecified. Currently patients BMI is 27.9. He is walking every day. Obesity increases the risk of apnea, CPAP pressure requirements and overall health risks especially cardiovascular and diabetes. Thus patient is advised to lose weight. * Continue auto CPAP pressure at 11.4-16 cmH2O * Update supplies * Notify me if snoring with mask or feeling that the pressure is too much or too little * Attempt to lose weight * Call this office if any problems using CPAP * Return for follow up in 1 year, or sooner if concerns arise Counseling Topics: Spare mask, Weight loss health impact Visit Type: In Office Time Spent with Patient (minutes): 21 Provider Statement: I spent 100% of the Face to Face Visit with the patient with greater than 50% spent counseling the patient and coordination of care.
== END 2022-06-03 08:36 | disposition home or self-care (01) ==
LOC: SC 08:35
PROVIDERS: ATTEND Nurse Practitioner Family
DX: G47.33 Obstructive sleep apnea (adult) (pediatric) (principal)
CPT/HCPCS: 99213; G0463; 99212

== ENCOUNTER 2022-07-23 07:23 | Outpatient (CLI) | payer MEDICARE, OTHER ==
--- NOTE | 2022-07-23 19:47 | Ultrasound Report ---
PROCEDURE: Abdomen Limited INDICATIONS: ELEVATED LIVER ENZYMES TECHNIQUE: Real-time focused scanning was performed of the abdomen, with image documentation. COMPARISON: Abdominal ultrasound dated 08/27/2015 FINDINGS: The liver is somewhat small. It is of heterogeneous echo pattern without focal mass identi fied. The liver measures 12.8 cm. Gallbladder is unremarkable. No gallstones or gallbladder wall thickening. There is a question of a 1.3 cm right cardiophrenic lymph node. No dilated ducts. Common hepatic duct measures 3.1 mm, common bile duct measures 4.4 cm. Visualized portions the pancreas are unremarkable. Right kidney measures 10 cm. No hydronephrosis. IMPRESSION: Small appearing heterogeneous liver. No masses. Question enlarged left cardiophrenic lymph node. Comment: Recommend multiphase CT to further evaluate the liver and the possibility of cardiophrenic l ymph node enlargement. Reviewed by: Arnold Cade MD on 07/23/2022 7:46 PM PST Approved by: Arnold Cade MD on 07/23/2022 7:46 PM PST Station ID: [id number]
== END 2022-07-23 07:24 | disposition home or self-care (01) ==
LOC: DI 07:23
PROVIDERS: ATTEND Nurse Practitioner
DX: R74.8 Abnormal levels of other serum enzymes (principal)

== ENCOUNTER 2022-08-08 11:10 | Outpatient (CLI) | payer MEDICARE, OTHER ==
[2022-08-08] MEDS ORDERED: iohexoL-300 100 ML VIAL ONE (11:22)
[2022-08-08 11:41] LABS: ALBUMIN 4.6 g/dL (3.2-5.5); ALBUMIN/GLOBULIN RATIO 1.6 (1.0-2.2); BILIRUBIN,TOTAL 1.9 mg/dL (0.2-1.0); CALCIUM 9.3 mg/dL (8.5-10.3); CREATININE 1.1 mg/dL (0.6-1.2); POTASSIUM 3.7 mmol/L (3.5-5.0); TOTAL PROTEIN 7.5 g/dL (6.7-8.2)
[2022-08-08] MEDS ORDERED: iohexoL-300 100 ML VIAL IVP ONE (12:50)
--- NOTE | 2022-08-08 13:14 | CT Report ---
PROCEDURE: ABDOMEN W/WO INDICATIONS: ABD LYMPHADENOPATHY CONTRAST: 100ml omni 300 TECHNIQUE: 4 phase scanning was performed. After the administration of intravenous contrast, 5 mm thick section s acquired from the diaphragm to the symphysis. 5 mm coronal and sagittal reformats were acquired. For radiation dose reduction, the following was used: automated exposure control, adjustment of mA a nd/or kV according to patient size. COMPARISON: 07/07/2013. Correlation is made with prior ultrasound, 07/23/2022. FINDINGS: Image quality: Excellent. Lung bases: Lung bases are clear. Heart size is normal. An aortic valve prosthesis is seen. Liver: The liver demonstrates normal size and demonstrates no suspicious lesions. Other solid organs: Gallbladder wall does not appear thickened. Biliary system is non dilated. P ancreas is normal in morphology. Spleen is normal in size and enhancement. An accessory splenule is incidentally noted along the hilum of the primary spleen. No adrenal nodules. Both kidneys demonstrate normal size and enhancement, without hydronephrosis or nephrolithiasis. Sim ple-appearing low-density bilateral renal cysts are seen. Nodes and vessels: No retroperitoneal or mesenteric adenopathy by size criteria. Aorta and inferior vena cava are normal in size. Bowel and peritoneum: Unenhanced bowel loops are normal in caliber. No free fluid or air. Bones: No suspicious bony lesions. No vertebral body compression fractures. Miscellaneous: No ventral hernias. IMPRESSION: No enlarged lymph nodes are seen. Additional findings: Aortic valve prosthesis Accessory splenule Simple appearing bilateral renal cysts Reviewed by: Alessandro Matias MD on 08/08/2022 12:12 PM [facility] Approved by: Alessandro Matais MD on 08/08/2022 12:12 PM [facility] Station ID: [id number]
== END 2022-08-08 11:11 | disposition home or self-care (01) ==
LOC: LAB 11:10
PROVIDERS: ATTEND Nurse Practitioner
DX: R74.8 Abnormal levels of other serum enzymes (principal); R59.1 Generalized enlarged lymph nodes
CPT/HCPCS: 36415; 74170; 80053; Q9967